=== PATIENT | female | born 1950 | race Two or more races ===

== ENCOUNTER → 2017-10-27 | Outpatient (CLI) | payer MEDICARE ==
--- NOTE | 2017-10-27 19:13 | MR ---
EXAMINATION TYPE: MR shoulder LT wo con DATE OF EXAM: 10/27/2017 COMPARISON: None HISTORY: Lt shoulder x 2 mos TECHNIQUE: Multiplanar, multisequence imaging of the left shoulder is performed without contrast. FINDINGS: Rotator Cuff: Supraspinatus tear is present with retraction to the level of the acromion. Abnormal th ickening is present of the subscapularis tendon, infraspinatus tendon with associated fluid signal alvarez ggesting tendinopathy. Acromioclavicular Joint: Hypertrophic changes present at the acromioclavicular joint. Glenohumeral Joint: Maintained Labrum: Some increased signal is present within the superior labrum which may be degenerative, there is a truncated appearance of the anterior aspect of the labrum, difficult to exclude a degenerative t ear although findings could be related to some labral foramen Biceps Tendon: The long head of biceps is in normal location within bicipital groove. There is fluid signal along the long head of biceps tendon Bone marrow signal: Pseudocysts are present in the humeral head. Other: There is fluid signal in the subacromial subdeltoid bursa. Suspect there is a small distal acr omial spur. Joint effusion is present. There is also fluid signal coursing along the subscapularis an d infraspinatus tendons. IMPRESSION: Rotator cuff tear as described. Additional findings above.
== END | disposition home or self-care (01) ==
LOC: RADMRIMAIN 16:38
PROVIDERS: ATTEND Family Medicine
DX: M75.102 Unspecified rotator cuff tear or rupture of left shoulder, not specified as traumatic (principal); M85.612 Other cyst of bone, left shoulder